=== PATIENT | male | born 1945 | race Caucasian/White ===

== ENCOUNTER 2018-01-27 20:02 | Emergency (ER) | payer MEDICARE ==
--- NOTE | 2018-01-27 22:09 | ER Document Report ---
ED Neuro Symptoms/Deficit - General Chief Complaint: High Blood Pressure Stated Complaint: BLOOD PRESSURE PROBLEMS Time Seen by Provider: 01/27/18 21:52 Mode of Arrival: Ambulatory Information source: Patient Notes: Patient states that he was driving and felt a sudden pop in his head around 715. Patient states that this made him nervous and he pulled over and checked his blood pressure. Patient states that at that time his blood pressure was 277 /79. Patient states that he did not have any headache pain, nausea, or vomiting. Patient denies any chest discomfort. Patient states that he did take a dose of clonidine when he noticed the elevated blood pressure. She typically takes amlodipine 2.5 mg each day but will take clonidine 0.1 mg as needed for blood pressures over 170 systolic. Patient additionally complains of left upper abdominal discomfort but states he has this chronically and has a nervous stomach. Patient has a long history of GERD and peptic ulcer disease and states that when his stomach starts to get upset it will cause his blood pressure to be elevated. - HPI Patient complains to provider of: No: Difficulty standing, Difficulty walking, Paralysis, Paresthesia, Weakness Onset: This evening - 7:15 pm Duration: Better Pain Level: Denies Baseline Cognitive: Alert, oriented X 3 Baseline Gait: Walks w/o assistance Alert To: Name/Voice Patient Orientation: Person, Place, Time, Events Associated symptoms: denies: Chest pain, Back pain, Falling injury, Lightheadedness, Nausea, Neck pain, Short of breath Similar symptoms previously: No Recently seen / treated by doctor: No - Related Data Allergies/Adverse Reactions: No Known Allergies Allergy (Verified 03/17/14 12:15) Past Medical History - General Information source: Patient - Social History Smoking Status: Never Smoker Frequency of alcohol use: None Drug Abuse: None Occupation: construction Family History: CAD, Malignancy - Past Medical History Cardiac Medical History: Reports: Hx Hypercholesterolemia, Hx Hypertension Endocrine Medical History: Reports: Hx Hypothyroidism GI Medical History: Reports: Hx Gastroesophageal Reflux Disease, Hx Ulcer Past Surgical History: Reports: Hx Appendectomy - Immunizations Hx Diphtheria, Pertussis, Tetanus Vaccination: No Review of Systems - Review of Systems Constitutional: No symptoms reported. denies: Fever, Recent illness EENT: No symptoms reported Cardiovascular: No symptoms reported. denies: Chest pain, Dizziness, Lightheaded Respiratory: No symptoms reported. denies: Cough, Short of breath Gastrointestinal: Abdominal pain. denies: Nausea, Vomiting Genitourinary: No symptoms reported Male Genitourinary: No symptoms reported Musculoskeletal: No symptoms reported. denies: Back pain, Neck pain Skin: No symptoms reported Hematologic/Lymphatic: No symptoms reported Neurological/Psychological: Other - felt pop in head. denies: Weakness, Lost consciousness, Headaches Physical Exam - Vital signs Vitals: Temp Pulse Resp BP Pulse Ox 98.1 F 83 20 169/86 H 96 01/27/18 20:15 01/27/18 20:15 01/27/18 20:15 01/27/18 20:15 01/27/18 20:15 - General General appearance: Appears well, Alert In distress: None - HEENT Head: Normocephalic, Atraumatic Eyes: Normal Conjunctiva: Normal Extraocular movements intact: Yes Eyelashes: Normal Pupils: PERRL Ears: Normal External canal: Normal Sinus: Normal Nasal: Normal Mouth/Lips: Normal Pharynx: Normal Neck: Normal, Supple. No: Lymphadenopathy - Respiratory Respiratory status: No respiratory distress Chest status: Nontender Breath sounds: Normal. No: Rales, Rhonchi, Stridor, Wheezing Chest palpation: Normal - Cardiovascular Rhythm: Regular Heart sounds: S1 appreciated, S2 appreciated Murmur: No - Abdominal Inspection: Normal Distension: No distension Bowel sounds: Normal Tenderness: Nontender - Back Back: Normal, Nontender. No: CVA tenderness, Vertebra tenderness - Extremities General upper extremity: Normal inspection, Normal strength General lower extremity: Normal inspection, Normal strength - Neurological Neuro grossly intact: Yes Cognition: Normal Orientation: AAOx4 [place] Coma Scale Eye Opening: Spontaneous [place] Coma Scale Verbal: Oriented [place] Coma Scale Motor: Obeys Commands [place] Coma Scale Total: 15 Speech: Normal. No: Dysarthria, Expressive aphasia Cranial nerves: Normal. No: Tongue deviation Cerebellar coordination: Normal, Heel-singleton, Finger-nose rhombey, Rapid alt. movements. No: Gait ataxia Motor strength normal: LUE, RUE, LLE, RLE Additional motor exam normals: Equal mds nurse. No: Weakness - Psychological Associated symptoms: Normal affect, Normal mood - Skin Skin Temperature: Warm Skin Moisture: Dry Skin Color: Normal Course - Re-evaluation Re-evalutation: 01/27/18 22:09 RN advised of stat CT head scan that was ordered and encouraged to get patient for imaging. 01/27/18 22:50 Patient returned to room after CT scan. Patient states that when he was in the radiology department he had to belch which made his stomach feel better and in turn resolved the funny feeling in the head. Patient states that he has been told he has a nervous stomach in the past and any time that he has had any kind of stomach issues it in turn causes his blood pressure to go up. Patient states typically when he manages his heartburn or reflux symptoms and will frequently help his blood pressure 01/28/18 00:[address] Lam regarding patient presentation. Discussed events leading up to his presentation to the ER. Recommends CT imaging of the brain if patient is agreeable to rule out any aneurysm. Discussed plan of care with patient, patient is agreeable for additional imaging. Patient presently denies any complaints. Patient denies any abdominal discomfort or headache symptoms. Patient states that his symptoms are better at this time. Patient blood pressure presently 121/75. - Vital Signs Vital signs: Temp Pulse Resp BP Pulse Ox 98.1 F 63 16 127/86 H 98 01/27/18 20:15 01/27/18 23:20 01/28/18 01:50 01/28/18 01:50 01/28/18 01:50 - Laboratory Result Diagrams: 01/27/18 22:32 01/27/18 22:32 Laboratory results interpreted by me: 01/27/18 22:32 BUN 27 H Labs- Entire Visit 01/27/18 01/27/18 01/27/18 22:32 22:32 22:32 WBC 8.3 RBC 4.90 Hgb 15.1 Hct 44.1 MCV 90 MCH 30.8 MCHC 34.2 RDW 12.9 Plt Count 229 Seg Neutrophils % 61.6 Lymphocytes % 25.2 Monocytes % 8.0 Eosinophils % 4.1 Basophils % 1.1 Absolute Neutrophils 5.1 Absolute Lymphocytes 2.1 Absolute Monocytes 0.7 Absolute Eosinophils 0.3 Absolute Basophils 0.1 PT 13.6 INR 0.97 APTT 32.9 Sodium 142.6 Potassium 4.0 Chloride 106 Carbon Dioxide 26 Anion Gap 11 BUN 27 H Creatinine 0.83 Est GFR ( Amer) > 60 Est GFR (Non-Af Amer) > 60 Glucose 103 Calcium 9.1 Magnesium 2.3 Total Bilirubin 0.4 Direct Bilirubin 0.1 Neonat Total Bilirubin Not Reportable Neonat Direct Bilirubin Not Reportable Neonat Indirect Bili Not Reportable AST 17 ALT 22 Alkaline Phosphatase 72 Creatine Kinase 131 CK-MB (CK-2) Troponin I Total Protein 6.7 Albumin 4.2 Lipase Urine Color Urine Appearance Urine pH Ur Specific [place] Urine Protein Urine Glucose (UA) Urine Ketones Urine Blood Urine Nitrite Urine Bilirubin Urine Urobilinogen Ur Leukocyte Esterase Urine WBC (Auto) Squamous Epi Cells Auto Urine Mucus (Auto) Urine Ascorbic Acid 01/27/18 01/27/18 01/27/18 22:32 22:32 23:15 WBC RBC Hgb Hct MCV MCH MCHC RDW Plt Count Seg Neutrophils % Lymphocytes % Monocytes % Eosinophils % Basophils % Absolute Neutrophils Absolute Lymphocytes Absolute Monocytes Absolute Eosinophils Absolute Basophils PT INR APTT Sodium Potassium Chloride Carbon Dioxide Anion Gap BUN Creatinine Est GFR ( Amer) Est GFR (Non-Af Amer) Glucose Calcium Magnesium Total Bilirubin Direct Bilirubin Neonat Total Bilirubin Neonat Direct Bilirubin Neonat Indirect Bili AST ALT Alkaline Phosphatase Creatine Kinase CK-MB (CK-2) 0.73 Troponin I < 0.012 Total Protein Albumin Lipase 132.7 Urine Color YELLOW Urine Appearance CLEAR Urine pH 7.0 Ur Specific [place] 1.020 Urine Protein NEGATIVE Urine Glucose (UA) NEGATIVE Urine Ketones NEGATIVE Urine Blood NEGATIVE Urine Nitrite NEGATIVE Urine Bilirubin NEGATIVE Urine Urobilinogen NEGATIVE Ur Leukocyte Esterase NEGATIVE Urine WBC (Auto) 1 Squamous Epi Cells Auto <1 Urine Mucus (Auto) RARE Urine Ascorbic Acid NEGATIVE - Diagnostic Test Radiology reviewed: Reports reviewed Discharge - Discharge Clinical Impression: Elevated blood pressure reading, Hx of gastroesophageal reflux (GERD) Condition: Stable Disposition: HOME, SELF-CARE Instructions: High Blood Pressure ([facility]), Reflux Disease (GERD) ([facility]) Additional Instructions: Return immediately for any new or worsening symptoms Followup with your primary care provider, call tomorrow to make a followup appointment Follow-up with your [employer] crm developer for further evaluation, call Monday for an appointment Forms: Return to Work [facility]: [facility] [Provider Group] - Follow up as needed
--- NOTE | 2018-01-27 22:33 | RADIOLOGY REPORT (SQ) ---
EXAM DESCRIPTION: CT HEAD WITHOUT CLINICAL HISTORY: 72 years Male, felt pop in head, elevated bp COMPARISON: None. TECHNIQUE: No contrast. This exam was performed according to our departmental dose-optimization program, which includes automated exposure control, adjustment of the mA and/or kV according to patient size and/or use of iterative reconstruction technique. FINDINGS: No hemorrhage or infarct. No mass, mass effect, or midline shift. Atherosclerosis. Brain and extra-axial structures appear otherwise intact. IMPRESSION: No acute findings.
--- NOTE | 2018-01-27 22:34 | RADIOLOGY REPORT (SQ) ---
EXAM DESCRIPTION: CHEST SINGLE VIEW COMPLETED DATE/TIME: 01/27/2018 10:19 pm REASON FOR STUDY: felt pop in head, elevated bp COMPARISON: AP CHEST 05/06/2013 EXAM PARAMETERS: NUMBER OF VIEWS: One view. TECHNIQUE: Single frontal radiographic view of the chest acquired. RADIATION DOSE: NA LIMITATIONS: None. FINDINGS: LUNGS AND PLEURA: No opacities, masses or pneumothorax. No pleural effusion. MEDIASTINUM AND HILAR STRUCTURES: No masses. Contour normal. HEART AND VASCULAR STRUCTURES: Heart normal in size. Normal vasculature. BONES: No acute findings. HARDWARE: None in the chest. OTHER: No other significant finding. IMPRESSION: NO ACUTE RADIOGRAPHIC FINDING IN THE CHEST. TECHNICAL DOCUMENTATION: JOB ID: [id number] [employer] All Rights Reserved Reading location - IP/workstation name: [email or web address]
[2018-01-27 22:41] LABS: ABSOLUTE BASOPHILS # (AUTO) 0.1 10^3/uL (0.0-0.2); ABSOLUTE EOSINOPHILS # (AUTO) 0.3 10^3/uL (0.0-0.6); ABSOLUTE LYMPHOCYTES (AUTO) 2.1 10^3/uL (0.5-4.7); ABSOLUTE MONOCYTES (AUTO) 0.7 10^3/uL (0.1-1.4); ABSOLUTE NEUT (AUTO) 5.1 10^3/uL (1.7-8.2); BASOPHILS % (AUTO) 1.1 % (0-2); EOSINOPHILS % (AUTO) 4.1 % (0-6); HEMATOCRIT 44.1 % (37.9-51.0); HEMOGLOBIN 15.1 g/dL (13.5-17.0); LYMPHOCYTES % (AUTO) 25.2 % (13-45); MEAN CORPUSCULAR HEMOGLOBIN 30.8 pg (27.0-33.4); MEAN CORPUSCULAR HGB CONC 34.2 g/dL (32.0-36.0); MEAN CORPUSCULAR VOLUME 90 fl (80-97); PLATELET COUNT 229 10^3/uL (150-450); RED CELL DISTRIBUTION WIDTH 12.9 % (11.5-14.0); SEGMENTED NEUTROPHILS % (AUTO) 61.6 % (42-78); TOTAL CELLS COUNTED % (AUTO) 100 %; WHITE BLOOD COUNT 8.3 10^3/uL (4.0-10.5)
[2018-01-27] MEDS ORDERED: MAG HYDROX/AL HYDROX/SIMETH SUSP 30 ML UDCUP PO ONE (22:49)
[2018-01-27] MEDS ORDERED: LIDOCAINE 2% VISCOUS SOLN 20 ML UDCUP PO ONE (22:49)
[2018-01-27 22:53] LABS: ALANINE AMINOTRANSFERASE 22 U/L (21-72); ALBUMIN 4.2 g/dL (3.5-5.0); ALKALINE PHOSPHATASE 72 U/L (38-126); ANION GAP 11 (5-19); ASPARTATE AMINO TRANSFERASE 17 U/L (17-59); BILIRUBIN,DIRECT 0.1 mg/dL (0.0-0.4); BILIRUBIN,TOTAL 0.4 mg/dL (0.2-1.3); BLOOD UREA NITROGEN 27 mg/dL (7-20); CALCIUM 9.1 mg/dL (8.4-10.2); CARBON DIOXIDE 26 mmol/L (22-30); CHLORIDE 106 mmol/L (98-107); CREATINE KINASE 131 U/L (55-170); GLUCOSE 103 mg/dL (75-110); SODIUM 142.6 mmol/L (137-145); TOTAL PROTEIN 6.7 g/dL (6.3-8.2)
[2018-01-27 23:03] LABS: PARTIAL THROMBOPLASTIN TIME 32.9 SEC (23.5-35.8)
[2018-01-27 23:05] LABS: CREATINE KINASE MB 0.73 ng/mL (<4.55)
[2018-01-27 23:06] LABS: INTERNATIONAL RATION (INR) 0.97; PROTHROMBIN TIME 13.6 SEC (11.4-15.4)
[2018-01-27 23:12] LABS: TROPONIN I < 0.012 ng/mL
[2018-01-27 23:35] LABS: APPEARANCE,URINE CLEAR; BILIRUBIN,URINE NEGATIVE (NEGATIVE); COLOR,URINE YELLOW; GLUCOSE, URINE NEGATIVE (NEGATIVE); KETONES,URINE NEGATIVE (NEGATIVE); LEUKOCYTE ESTERASE,URINE NEGATIVE (NEGATIVE); NITRITE,URINE NEGATIVE (NEGATIVE); PROTEIN,URINE NEGATIVE (NEGATIVE); UROBILINOGEN,URINE NEGATIVE mg/dL (<2.0)
[2018-01-27 23:36] LABS: LIPASE 132.7 U/L (23-300)
--- NOTE | 2018-01-28 01:24 | RADIOLOGY REPORT (SQ) ---
EXAM DESCRIPTION: CTA NECK (accession [id number]), CTA HEAD (accession [id number]) CLINICAL HISTORY: 72 years Male, HTN, felt pop in head COMPARISON: None. TECHNIQUE: 70 mL Isovue-370, IV contrast. Multiplanar reformat. This exam was performed according to our departmental dose-optimization program, which includes automated exposure control, adjustment of the mA and/or kV according to patient size and/or use of iterative reconstruction technique. FINDINGS: CTA head: Hypoplastic posterior communicating arteries bilaterally, normal variant. No aneurysm, no stenosis, no occlusion. No vasculitides. CTA NECK: Normal CTA appearance of the carotid and vertebral system. No dissection, no stenosis, no occlusion. Moderate disc desiccation of the C3-C4 and C5-C6 levels. 0.2 cm degenerative C3 retrolisthesis. IMPRESSION: Normal CTA of the head and neck.
--- NOTE | 2018-01-28 01:24 | RADIOLOGY REPORT (SQ) ---
EXAM DESCRIPTION: CTA NECK (accession [id number]), CTA HEAD (accession [id number]) CLINICAL HISTORY: 72 years Male, HTN, felt pop in head COMPARISON: None. TECHNIQUE: 70 mL Isovue-370, IV contrast. Multiplanar reformat. This exam was performed according to our departmental dose-optimization program, which includes automated exposure control, adjustment of the mA and/or kV according to patient size and/or use of iterative reconstruction technique. FINDINGS: CTA head: Hypoplastic posterior communicating arteries bilaterally, normal variant. No aneurysm, no stenosis, no occlusion. No vasculitides. CTA NECK: Normal CTA appearance of the carotid and vertebral system. No dissection, no stenosis, no occlusion. Moderate disc desiccation of the C3-C4 and C5-C6 levels. 0.2 cm degenerative C3 retrolisthesis. IMPRESSION: Normal CTA of the head and neck.
[2018-01-28 01:54] VITALS: BP 127/86
--- NOTE | 2018-01-28 08:47 | EKG REPORT ---
SEVERITY:- OTHERWISE NORMAL ECG - SINUS RHYTHM BORDERLINE LEFT AXIS DEVIATION : Confirmed by: Toño Ngo MD 28-Jan-2018 08:47:33
== END 2018-01-28 01:54 | disposition home or self-care (01) ==
LOC: ER 20:02
DX: I10 Essential (primary) hypertension (principal); K21.9 Gastro-esophageal reflux disease without esophagitis; E78.00 Pure hypercholesterolemia, unspecified; E03.9 Hypothyroidism, unspecified
CPT/HCPCS: 93005; 99284; 36415; 82553; 82550; 83690; 83735; 85025; 85610; 85730; 80053; 81001; 84484; 71045; 70450; 70496; 70498; 93010; J3490